=== PATIENT | female | born 1995 | race American Indian/Alaskan Native ===

== ENCOUNTER 2017-10-05 18:01 | Emergency (ER) | payer MEDICAID ==
[2017-10-05 18:18] VITALS: BMI 22.6
[2017-10-05] MEDS ORDERED: Sodium Chloride 0.9% 1,000 ML IV STA (18:54)
[2017-10-05 19:37] LABS: BASO # 0.02 K/mm3 (0.0-2.0); BASO % 0.1 % (0.0-3.0); EOS % 0.2 % (1.5-5.0); GRAN # 13.43 (1.4-6.5); GRAN % 84.1 % (50.0-68.0); HEMOGLOBIN 9.8 g/dL (12.0-16.0); LYMPH % 6.1 % (22.0-35.0); MEAN CELL VOLUME 80.6 fl (80.0-105.0); MEAN CORPUSCULAR HEMOGLOBIN 26.3 pg (25.0-35.0); MEAN CORPUSCULAR HGB CONC 32.7 g/dl (31.0-37.0); MEAN PLATELET VOLUME 9.2 fl (7.0-11.0); MONO # 1.5 (0.1-0.6); MONO % 9.5 % (1.0-6.0); RBC 3.72 10^6/uL (3.5-6.1); RED CELL DISTRIBUTION WIDTH 14.2 % (11.5-14.5)
[2017-10-05 19:38] LABS: ALB/GLOB RATIO 0.7 (1.1-1.8); ALBUMIN 3.2 g/dL (3.0-4.8); ALT/SGPT 11 U/L (7-56); AST/SGOT 23 U/L (14-36); BLOOD UREA NITROGEN 6 mg/dL (7-21); CALCIUM 8.4 mg/dL (8.4-10.5); GFR NON-AFRICAN AMERICAN > 60
[2017-10-05 19:38] LABS: URINE BILIRUBIN NEGATIVE (NEGATIVE); URINE BLOOD NEGATIVE (NEGATIVE); URINE GLUCOSE (UA) NEGATIVE (NEGATIVE); URINE LEUKOCYTE ESTERASE TRACE Leu/uL (NEGATIVE); URINE PROTEIN TRACE mg/dL (<30 mg/dL); URINE UROBILINOGEN 0.2 E.U./dL (<1 E.U./dL)
[2017-10-05 19:42] LABS: INR 1.36; PARTIAL THROMBOPLASTIN TIME 26.7 Seconds (25.1-36.5); PROTHROMBIN TIME 15.6 SECONDS (9.4-12.5)
[2017-10-05 19:54] LABS: VENOUS BLOOD GAS BASE EXCESS 4.7 mmol/L (0.0-2.0); VENOUS BLOOD GAS PO2 84 mm/Hg (30-55); VENOUS BLOOD PH 7.45 (7.32-7.43)
[2017-10-05 19:54] LABS: URINE APPEARANCE CLEAR (CLEAR); URINE COLOR YELLOW (YELLOW)
[2017-10-05 19:59] LABS: URINE BACTERIA MANY (NEG); URINE RBC 0 - 2 /hpf (0-2)
--- NOTE | 2017-10-05 20:50 | ED PDOC ---
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 Patient states that she is currently on antibiotic for C.diff. States she has been on antibiotic for 3weeks now. Her last diarrhea was today. States she had abdominal pain yesterday, but not today. she is currently on Humira for Crhon's. Denies abdominal pain, urinary symptoms, headache, chest pain, cough, back pain, any other complaint. Past Medical History - Provider Review Nursing Documentation Reviewed: Yes - Infectious Disease Hx of Infectious Diseases: C.diff - Hematological/Oncological Hx Anemia: Yes - Musculoskeletal/Rheumatological Hx Arthritis: Yes - Gastrointestinal Hx Crohn's Disease: Yes - Psychiatric Hx Substance Use: No - Surgical History Other/Comment: Colonoscopy Family/Social History - Physician Review Nursing Documentation Reviewed: Yes Family/Social History: Unknown Family HX Smoking Status: Never Smoked Hx Alcohol Use: Yes Frequency of alcohol use: Socially Hx Substance Use: No Allergies/Home Meds Allergies/Adverse Reactions: Allergies No Known Allergies Allergy (Verified 10/05/17 18:17) Home Medications: Home Meds Medication Instructions Recorded Confirmed Adalimumab [Humira Pen] 1 kit SC Q7D 10/05/17 10/05/17 Naproxen [Naprosyn] 1,000 mg PO DAILY PRN 10/05/17 10/05/17 Vancomycin HCl [Vancocin 125 MG 1 cap PO QID 10/05/17 10/05/17 Cap] Review of Systems - Physician Review All systems were reviewed & negative as marked: Yes - Review of Systems Constitutional: Fevers Eyes: Normal ENT: Normal Respiratory: Normal Cardiovascular: Normal Gastrointestinal: Normal Genitourinary Female: Normal Musculoskeletal: Normal Skin: Normal Neurological: Normal Endocrine: Normal Hemo/Lymphatic: Normal Psychiatric: Normal Physical Exam Vital Signs Reviewed: Yes Vital Signs Temp Pulse Resp BP Pulse Ox 10/05/17 22:36 99.2 F 101 H 17 101/61 99 10/05/17 22:01 103 H 18 105/60 97 10/05/17 21:01 99.5 F 10/05/17 19:50 101.5 F H 10/05/17 18:22 101.5 F H 120 H 18 106/67 96 Temperature: Febrile Blood Pressure: Normal Pulse: Tachycardic Respiratory Rate: Normal Appearance: Positive for: Well-Appearing, Non-Toxic, Comfortable Pain Distress: None Mental Status: Positive for: Alert and Oriented X 3 - Systems Exam Head: Present: Atraumatic, Normocephalic Pupils: Present: PERRL Extroacular Muscles: Present: EOMI Conjunctiva: Present: Normal Mouth: Present: Moist Mucous Membranes Neck: Present: Normal Range of Motion Respiratory/Chest: Present: Clear to Auscultation, Good Air Exchange. No: Respiratory Distress, Accessory Muscle Use Cardiovascular: Present: Regular Rate and Rhythm, Normal S1, S2. No: Murmurs Abdomen: Present: Normal Bowel Sounds. No: Tenderness, Distention, Peritoneal Signs, Rebound, Guarding, McBurney's Point Tender, Rovsing's Sign Present Back: Present: Normal Inspection Upper Extremity: Present: Normal Inspection. No: Cyanosis, Edema Lower Extremity: Present: Normal Inspection. No: Edema Neurological: Present: GCS=15, CN II-XII Intact, Speech Normal Skin: Present: Warm, Dry, Normal Color. No: Rashes Psychiatric: Present: Alert, Oriented x 3, Normal Insight, Normal Concentration Medical Decision Making ED Course and Treatment: 10/05/17 22:54 22yo female presnt with one hour of fever and chills. Labs CXR Blood culture VBG Urine culture Tylenol 650 1L NS Stool C-Diff Result was reviewed and leukocytosis was noted.she was hydrated in ED. Potassium was repleted. PT is already on abx. She will need further evaluation for fever source CXR NAD Case was DW Dr. Desai and he accepted pt for admission. He saw pt in ED by the bedside. - Lab Interpretations Lab Results: 10/05/17 19:18 10/05/17 19:18 Lab Results 10/05/17 19:37: pO2 84 H, VBG pH 7.45 H, VBG pCO2 42.0, VBG HCO3 29.2 H, VBG Total CO2 30.5 H, VBG O2 Sat (Calc) 97.4 H, VBG Base Excess 4.7 H, VBG Potassium 3.2 L, Glucose 101, Lactate 0.8, FiO2 21.0, Sodium 138.0, Chloride 105.0, Venous Blood Potassium 3.2 L 10/05/17 19:22: Urine Color Yellow, Urine Appearance Clear, Urine pH 6.0, Ur Specific [place] 1.015, Urine Protein Trace H, Urine Glucose (UA) Negative, Urine Ketones Negative, Urine Blood Negative, Urine Nitrate Negative, Urine Bilirubin Negative, Urine Urobilinogen 0.2, Ur Leukocyte Esterase Trace H, Urine RBC 0 - 2, Urine WBC 5 - 10, Ur Epithelial Cells 6 - 8, Urine Bacteria Many, Urine Other Uyeast 10/05/17 19:18: Sodium 140, Potassium 3.3 L, Chloride 102, Carbon Dioxide 27, Anion Gap 14, BUN 6 L, Creatinine 0.7, Est GFR ( Amer) > 60, Est GFR (Non -Af Amer) > 60, Random Glucose 94, Calcium 8.4, Phosphorus 2.8, Magnesium 1.9, Total Bilirubin 0.3, AST 23, ALT 11, Alkaline Phosphatase 77, Total Protein 8.1 , Albumin 3.2, Globulin 4.8, Albumin/Globulin Ratio 0.7 L 10/05/17 19:18: PT 15.6 H, INR 1.36, APTT 26.7 10/05/17 19:18: WBC 16.0 H, RBC 3.72, Hgb 9.8 L, Hct 30.0 L, MCV 80.6, MCH 26.3 , MCHC 32.7, RDW 14.2, Plt Count 420, MPV 9.2, Gran % 84.1 H, Lymph % (Auto) 6.1 L, [place] % (Auto) 9.5 H, Eos % (Auto) 0.2 L, Baso % (Auto) 0.1, Gran # 13.43 H, Lymph # (Auto) 1.0 L, [place] # (Auto) 1.5 H, Eos # (Auto) 0.0, Baso # (Auto) 0.02 - RAD Interpretation Radiology Orders: 10/05/17 18:51 CHEST PORTABLE [RAD] Stat - Medication Orders Current Medication Orders: Discontinued Medications Acetaminophen (Tylenol 325mg Tab) 650 mg PO STAT STA Stop: 10/05/17 18:56 Last Admin: 10/05/17 19:50 Dose: 650 mg MAR Pain/Vitals Document 10/05/17 19:50 IT (Rec: 10/05/17 19:51 IT [id number]) Pain Reassessment Is This A Pain ReAssessment? No Sleep Is patient sleeping during reassessment? No Vitals Temperature (97.6 F-99.6 F) 101.5 F Temperature Source Oral Acetaminophen (Tylenol 325mg Tab) 650 mg PO Q6H PRN PRN Reason: Fever >100.4 F Acetaminophen (Tylenol 325mg Tab) 650 mg PO Q6H PRN PRN Reason: Pain, moderate (4-7) Sodium Chloride (Sodium Chloride 0.9%) 1,000 mls @ 999 mls/hr IV .Q1H1M STA Stop: 10/05/17 19:54 Last Admin: 10/05/17 19:50 Dose: 999 mls/hr eMAR Start Stop Document 10/05/17 19:50 IT (Rec: 10/05/17 19:50 IT [id number]) Intravenous Solution Start Date 10/05/17 Start Time 19:50 Sodium Chloride (Sodium Chloride 0.9%) 1,000 mls @ 125 mls/hr IV .Q8H JUAN DAVID Potassium Chloride (K-Dur 20 Meq Er Tab) 40 meq PO STAT STA Stop: 10/05/17 21:57 Vancomycin HCl (Vancocin 25 Mg/Ml (Oral Use)) 125 mg PO QID JUAN DAVID PRN Reason: Protocol Disposition/Present on Arrival - Present on Arrival Any Indicators Present on Arrival: No History of DVT/PE: No History of Uncontrolled Diabetes: No Urinary Catheter: No History of Decub. Ulcer: No History Surgical Site Infection Following: None - Disposition Have Diagnosis and Disposition been Completed?: Yes Diagnosis: Leukocytosis, Fever, C. difficile diarrhea Disposition: HOSPITALIZED Disposition Time: 21:25 Patient Plan: Admission Condition: FAIR
[2017-10-05] MEDS ORDERED: Potassium Chloride 20 mEq ER Tab PO STA (21:56)
[2017-10-05] MEDS ORDERED: Vancomycin 25 MG/ML PO SCH (22:00)
[2017-10-05] MEDS ORDERED: Sodium Chloride 0.9% 1,000 ML IV SCH (22:00)
--- NOTE | 2017-10-05 22:36 | CP.PCM.HP ---
<Loki Liang - Last Filed: 10/05/17 21:55> History of Present Illness - History of Present Illness History of Present Illness: Loki Liang, PGY-1 History and Physical for Hospitalist Service CC: Chills and full-body shaking HPI: Ms. Zavaleta is a 22 year old Female with a PMHx of Crohn's Disease on Adalimumab, Fe deficiency anemia not currently on supplementation and Rheumatoid Arthritis on Naproxen who presents with complaints of subjective fevers, chills and full body shakes. 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 Patient reports that this afternoon, patient experienced chills and shaking. Nothing made these feelings better or worse, although patient did not endorse attempting anything. Patient denies any pain or headaches associated with symptoms. Patient has been on a 3 week course of oral vancomycin after being diagnosed with c. diff. Patient reports that due to multiple antibiotics prescribed for her abdominal pain 2/2 to her Crohn's, patient developed c. diff and was prescribed therapeutic oral vancomycin for which she reports compliance. Patient has not had diarrhea in multiple days, reporting 2 non-bloody bowel movements yesterday and one today. Patient arrived for evaluation, and in ED patient received Tylenol and NS bolus. She reports a resolution of her chills and shakes and states her symptoms are improved. PMHx: Crohn's Disease, Anemia, RA PSHx: colonscopy NKDA Social: Denies tobacco and IVDU, social ETOH occasionally Fam hx: noncontributory Meds: Vanc 125 mg PO QID, Naproxen 1g daily PRN every few days, Adalimumab 1 injection per week PCP: None Present on Admission - Present on Admission Any Indicators Present on Admission: No Review of Systems - Review of Systems Review of Systems: 12 point ROS completed and negative except as described in HPI. Past Patient History - Infectious Disease Hx of Infectious Diseases: C.diff - Past Social History Smoking Status: Never Smoked - HEMATOLOGICAL/ONCOLOGICAL Hx Anemia: Yes - MUSCULOSKELETAL/RHEUMATOLOGICAL Hx Arthritis: Yes - GASTROINTESTINAL Hx Crohn's Disease: Yes - PSYCHIATRIC Hx Substance Use: No - SURGICAL HISTORY Other/Comment: Colonoscopy Meds Allergies/Adverse Reactions: Allergies Allergy/AdvReac Type Severity Reaction Status Date / Time No Known Allergies Allergy Verified 10/05/17 18:17 Physical Exam - Constitutional Appears: Well, Non-toxic, No Acute Distress - Head Exam Head Exam: ATRAUMATIC, NORMAL INSPECTION, NORMOCEPHALIC - Eye Exam Eye Exam: EOMI, Normal appearance Pupil Exam: PERRL - ENT Exam ENT Exam: Mucous Membranes Moist, Normal Exam - Neck Exam Neck exam: Positive for: Normal Inspection - Respiratory Exam Respiratory Exam: Clear to Auscultation Bilateral, NORMAL BREATHING PATTERN. absent: Accessory Muscle Use, Chest Wall Tenderness, Decreased Breath Sounds, Rales - Cardiovascular Exam Cardiovascular Exam: RRR, +S1, +S2 - GI/Abdominal Exam GI & Abdominal Exam: Normal Bowel Sounds, Soft. absent: Diminished Bowel Sounds , Distended, Firm, Guarding, Rebound, Rigid, Tenderness - Extremities Exam Extremities exam: Positive for: full ROM, normal inspection, pedal pulses present. Negative for: calf tenderness, joint swelling, tenderness - Back Exam Back exam: NORMAL INSPECTION. absent: CVA tenderness (L), CVA tenderness (R) - Neurological Exam Neurological exam: Alert, CN II-XII Intact, Normal Gait, Oriented x3 - Psychiatric Exam Psychiatric exam: Normal Affect, Normal Mood - Skin Skin Exam: Dry, Intact, Normal Color, Warm Results - Vital Signs Recent Vital Signs: Last Vital Signs Temp 99.5 F 10/05/17 21:01 Pulse 120 H 10/05/17 18:22 Resp 18 10/05/17 18:22 BP 106/67 10/05/17 18:22 Pulse Ox 96 10/05/17 18:22 - Labs Result Diagrams: 10/05/17 19:18 10/05/17 19:18 Assessment & Plan - Assessment and Plan (Free Text) Assessment: Assessment: Ms. Zavaleta is a 22 year old Female with a PMHx of Crohn's Disease, Rheumatoid Arthritis, and Anemia who presented with subjective fevers, chills and shakes. Further workup is pending. Plan: Before therapy could be initiated for leukocytosis, c. diff coverage, and hypokalemia, which includes Vancomycin PO, IVF, Tylenol for fever and pain, serra culture, and Potassium repletion, patient decided to sign out against medical advice. Patient was recommended to stay to be evaluated and monitored for possible infection. Risks of leaving were discussed at length with the patient, and patient's questions were answered in full and to patient's satisfaction. Patient seen, case reviewed, and plan discussed with Dr. Desai. Loki Liang, PGY-1 <Christy Desai - Last Filed: 10/07/17 02:08> Results - Vital Signs Recent Vital Signs: Last Vital Signs Temp 99.2 F 10/05/17 22:36 Pulse 101 H 10/05/17 22:36 Resp 17 10/05/17 22:36 BP 101/61 10/05/17 22:36 Pulse Ox 99 10/05/17 22:36 - Labs Result Diagrams: 10/05/17 19:18 10/05/17 19:18 Attending/Attestation - Attestation I have personally seen and examined this patient.: Yes I have fully participated in the care of the patient.: Yes I have reviewed all pertinent clinical information: Yes
[2017-10-05 22:37] VITALS: BP 101/61; PULSE 101; RESP 17; TEMP 99.2; O2SAT 99
--- NOTE | 2017-10-06 09:18 | RAD ---
Date of service: 10/05/2017 HISTORY: Sepsis Patient COMPARISON: No prior. FINDINGS: LUNGS: No active pulmonary disease. PLEURA: No significant pleural effusion identified, no pneumothorax apparent. CARDIOVASCULAR: Normal. OSSEOUS STRUCTURES: No significant abnormalities. VISUALIZED UPPER ABDOMEN: Normal. OTHER FINDINGS: None. IMPRESSION: No acute cardiopulmonary disease appreciated.
--- NOTE | 2017-10-06 19:27 | CARD ---
APPROVED REPORT Date of service: 10/05/2017 EKG Measurement Heart [id number] <Conclusion> Sinus tachycardia Possible Left atrial enlargement Left ventricular hypertrophy Abnormal ECG
== END 2017-10-05 22:37 | disposition left against medical advice (07) ==
LOC: ED 18:01 → ERH 21:25 → UNDOADMIN 21:25 → ERH 22:32
DX: A04.72 Enterocolitis due to Clostridium difficile, not specified as recurrent (principal); R50.9 Fever, unspecified; D72.829 Elevated white blood cell count, unspecified
CPT/HCPCS: 71045; 80053; 81001; 82803; 83735; 84100; 85025; 85610; 85730; 87040; 87086; 93005; 99285; J7030

== ENCOUNTER 2018-01-01 14:33 | Emergency (ER) | payer MEDICAID, OTHER ==
[2018-01-01 15:30] VITALS: BMI 21.7
[2018-01-01] MEDS ORDERED: Sodium Chloride 0.9% 1,000 ML IV STA (15:47)
[2018-01-01 16:38] VITALS: O2SAT 99
--- NOTE | 2018-01-01 16:43 | ED PDOC ---
Arrival/HPI - General Chief Complaint: GI Problem Time Seen by Provider: 01/01/18 14:34 Historian: Patient - History of Present Illness Narrative History of Present Illness (Text): 01/01/18 16:00 A 22 year old female, whose past medical history includes Crohn's disease, presents to the emergency department complaining of diffuse abdominal pain for the past couple of days. Patient reports also experiencing mild nausea and had 1 episode of non-bilious/non-bloody vomiting. Patient denies any fever, bloody stool, hematuria, vaginal bleeding, or any other complaints at this time. No PMD Time/Duration: < week (few days) Past Medical History - Provider Review Nursing Documentation Reviewed: Yes - Infectious Disease Hx of Infectious Diseases: C.diff - Cardiac Hx Cardiac Disorders: No - Pulmonary Hx Respiratory Disorders: No - Neurological Hx Neurological Disorder: No - HEENT Hx HEENT Disorder: No - Renal Hx Renal Disorder: No - Endocrine/Metabolic Hx Endocrine Disorders: No - Hematological/Oncological Hx Blood Disorders: Yes Hx Anemia: Yes - Integumentary Hx Dermatological Disorder: No - Musculoskeletal/Rheumatological Hx Musculoskeletal Disorders: Yes Hx Arthritis: Yes Hx Rheumatoid Arthritis: Yes - Gastrointestinal Hx Gastrointestinal Disorders: Yes Hx Crohn's Disease: Yes - Genitourinary/Gynecological Hx Genitourinary Disorders: No - Psychiatric Hx Psychophysiologic Disorder: No Hx Substance Use: No - Surgical History Other/Comment: Colonoscopy Family/Social History - Physician Review Nursing Documentation Reviewed: Yes Family/Social History: No Known Family HX Smoking Status: Never Smoked Hx Alcohol Use: Yes Hx Substance Use: No Allergies/Home Meds Allergies/Adverse Reactions: Allergies No Known Allergies Allergy (Verified 10/05/17 18:17) Home Medications: Home Meds Medication Instructions Recorded Confirmed Adalimumab [Humira Pen] 1 kit SC Q7D 10/05/17 10/05/17 Naproxen [Naprosyn] 1,000 mg PO DAILY PRN 10/05/17 10/05/17 Vancomycin HCl [Vancocin 125 MG 1 cap PO QID 10/05/17 10/05/17 Cap] Review of Systems - Physician Review All systems were reviewed & negative as marked: Yes - Review of Systems Constitutional: absent: Fevers Gastrointestinal: Abdominal Pain (diffuse), Nausea (mild), Vomiting (1 episode). absent: Stool Changes (no bloody stool) Genitourinary Female: absent: Hematuria, Vaginal Bleeding Physical Exam Vital Signs Reviewed: Yes Vital Signs Temp Pulse Resp BP Pulse Ox 01/01/18 16:38 98.5 F 68 19 113/62 99 Temperature: Afebrile Blood Pressure: Normal Pulse: Regular Respiratory Rate: Normal Appearance: Positive for: Well-Appearing, Non-Toxic, Comfortable Pain Distress: None Mental Status: Positive for: Alert and Oriented X 3 - Systems Exam Head: Present: Atraumatic, Normocephalic Pupils: Present: PERRL Extroacular Muscles: Present: EOMI Conjunctiva: Present: Normal Mouth: Present: Moist Mucous Membranes Neck: Present: Normal Range of Motion Respiratory/Chest: Present: Clear to Auscultation, Good Air Exchange. No: Respiratory Distress, Accessory Muscle Use Cardiovascular: Present: Regular Rate and Rhythm, Normal S1, S2. No: Murmurs Abdomen: No: Tenderness, Distention, Peritoneal Signs Back: Present: Normal Inspection Upper Extremity: Present: Normal Inspection. No: Cyanosis, Edema Lower Extremity: Present: Normal Inspection. No: Edema Neurological: Present: GCS=15, CN II-XII Intact, Speech Normal Skin: Present: Warm, Dry, Normal Color. No: Rashes Psychiatric: Present: Alert, Oriented x 3, Normal Insight, Normal Concentration Medical Decision Making ED Course and Treatment: 01/01/18 16:02 Impression: 22 year old female with diffuse abdominal pain, mild nausea, and had 1 episode of vomiting. Physical examination is unremarkable. Plan: -- Abd/Pelvis CT -- Labs -- Urine Culture -- Urinalysis -- Toradol -- IV Fluids -- POC Urine Test -- Reassess and disposition Prior Visits: Notes and results from previous visits were reviewed. Patient was last seen in the emergency department on 10/05/2017 for fever and chills. Patient left against medical advice. Progress Notes: - RAD Interpretation Radiology Orders: 01/01/18 15:52 ABD & PELVIS IV CONTRAST ONLY [CT] Stat - Medication Orders Current Medication Orders: Sodium Chloride (Sodium Chloride 0.9%) 1,000 mls @ 1,000 mls/hr IV .Q1H STA Stop: 01/01/18 16:46 Last Admin: 01/01/18 16:37 Dose: 1,000 mls/hr eMAR Start Stop Document 01/01/18 16:37 [email or web address] (Rec: 01/01/18 16:37 [facility] [id number]) Intravenous Solution Start Date 01/01/18 Start Time 16:37 Discontinued Medications Ketorolac Tromethamine (Toradol) 30 mg IM STAT STA Stop: 01/01/18 15:48 Last Admin: 01/01/18 16:37 Dose: 30 mg MAR Pain Assessment Document 01/01/18 16:37 [facility] (Rec: 01/01/18 16:38 [facility] [id number]) Pain Reassessment Is this a pain reassessment? No Sleep Is patient sleeping during reassessment? No Presence of Pain Presence of Pain Yes Pain Scale Used Protocol: PSCALES Pain Scale Used Numeric Location Pain Location Body Site Abdomen Description Description Constant Intensity of Pain at present 2 Pain Behavior Facial Grimacing Aggravating Factors Changing Position Alleviating Factors/Management Medication Techniques Alleviating Factors Medication IM Administration Charges Document 01/01/18 16:37 [facility] (Rec: 01/01/18 16:38 [facility] [id number]) Charges for Administration # of IM Administrations 1 - Scribe Statement The provider has reviewed the documentation as recorded by the Nuria Hebert Provider Scribe Attestation: All medical record entries made by the Scribe were at my direction and personally dictated by me. I have reviewed the chart and agree that the record accurately reflects my personal performance of the history, physical exam, medical decision making, and the department course for this patient. I have also personally directed, reviewed, and agree with the discharge instructions and disposition. Disposition/Present on Arrival - Present on Arrival Any Indicators Present on Arrival: No History of DVT/PE: No History of Uncontrolled Diabetes: No Urinary Catheter: No History of Decub. Ulcer: No History Surgical Site Infection Following: None - Disposition Have Diagnosis and Disposition been Completed?: Yes Diagnosis: Crohn's disease Disposition: HOME/ ROUTINE Disposition Time: 19:00 Patient Problems: Current Active Problems Problem Status Onset Crohn's disease Acute Condition: GOOD Discharge Instructions (ExitCare): Inflammatory Bowel Disease (DC) Additional Instructions: WILFRID BOWMAN, thank you for letting us take care of you today. Your provider was Mina Del Cid DO and you were treated for ABD PAIN. The emergency medical care you received today was directed at your acute symptoms. If you were prescribed any medication, please fill it and take as directed. It may take several days for your symptoms to resolve. Return to the Emergency Department if your symptoms worsen, do not improve, or if you have any other problems. Please contact your doctor or call one of the physicians/clinics you have been referred to that are listed on the Patient Visit Information form that is included in your discharge packet. Bring any paperwork you were given at discharge with you along with any medications you are taking to your follow up visit. Our treatment cannot replace ongoing medical care by a primary care provider outside of the emergency department. Thank you for allowing the [facility] team to be part of your care today. Follow up with our clinic next week for outpatient care and evaluation. Referrals: Margo Cunningham MD [Medical Doctor] - Follow up with primary Director Of Web Marketing Service [Outside] - Follow up with primary Forms: [employer] (Turkish)
[2018-01-01 16:45] LABS: BASO # 0.03 K/mm3 (0.0-2.0); BASO % 0.5 % (0.0-3.0); EOS # 0.1 (0.0-0.7); GRAN # 2.88 (1.4-6.5); GRAN % 49.2 % (50.0-68.0); HEMOGLOBIN 10.6 g/dL (12.0-16.0); LYMPH # 2.3 (1.2-3.4); LYMPH % 39.4 % (22.0-35.0); MEAN CELL VOLUME 82.9 fl (80.0-105.0); MEAN CORPUSCULAR HEMOGLOBIN 26.6 pg (25.0-35.0); MEAN CORPUSCULAR HGB CONC 32.1 g/dl (31.0-37.0); MEAN PLATELET VOLUME 10.2 fl (7.0-11.0); MONO # 0.5 (0.1-0.6); MONO % 8.9 % (1.0-6.0); RBC 3.98 10^6/uL (3.5-6.1); WHITE BLOOD COUNT 5.9 10^3/uL (4.5-11.0)
[2018-01-01 16:51] LABS: PH,URINE 7.5 (4.7-8.0); URINE BILIRUBIN NEGATIVE (NEGATIVE); URINE BLOOD NEGATIVE (NEGATIVE); URINE GLUCOSE (UA) NEGATIVE (NEGATIVE); URINE LEUKOCYTE ESTERASE NEGATIVE Leu/uL (NEGATIVE); URINE PROTEIN NEGATIVE mg/dL (<30 mg/dL); URINE UROBILINOGEN 0.2 E.U./dL (<1 E.U./dL)
[2018-01-01 16:54] LABS: URINE APPEARANCE CLEAR (CLEAR); URINE COLOR YELLOW (YELLOW)
[2018-01-01 17:19] LABS: ALB/GLOB RATIO 0.8 (1.1-1.8); ALBUMIN 3.9 g/dL (3.0-4.8); ALT/SGPT 14 U/L (7-56); AST/SGOT 26 U/L (14-36); BLOOD UREA NITROGEN 7 mg/dL (7-21); CALCIUM 8.8 mg/dL (8.4-10.5); GFR NON-AFRICAN AMERICAN > 60; LIPASE 45 U/L (23-300)
[2018-01-01] MEDS ORDERED: Iohexol 350 MG/100 ML VIAL ONE (17:33)
[2018-01-01 19:19] VITALS: BP 109/78; PULSE 82; RESP 17; TEMP 98
--- NOTE | 2018-01-02 09:19 | CT ---
Date of service: 01/01/2018 PROCEDURE: CT Abdomen and Pelvis with contrast HISTORY: lower abdominal pain h/o crohn's disease COMPARISON: None. TECHNIQUE: Contrast dose: 100 cc of Omni 350 Radiation dose: Total exam DLP = 231.24 mGy-cm. This CT exam was performed using one or more of the following dose reduction techniques: Automated exposure control, adjustment of the mA and/or kV according to patient size, and/or use of iterative reconstruction technique. FINDINGS: LOWER THORAX: Unremarkable. LIVER: Unremarkable. No gross lesion or ductal dilatation. GALLBLADDER AND BILE DUCTS: Unremarkable. PANCREAS: Unremarkable. No gross lesion or ductal dilatation. SPLEEN: Unremarkable. ADRENALS: Unremarkable. No mass. KIDNEYS AND URETERS: Unremarkable. No hydronephrosis. No solid mass. VASCULATURE: Unremarkable. No aortic aneurysm. No aortic atherosclerotic calcification or mural plaque present. BOWEL: Unremarkable. No obstruction. No gross mural thickening. APPENDIX: Normal appendix. PERITONEUM: Unremarkable. No free fluid. No free air. LYMPH NODES: Mildly enlarged mesenteric lymph nodes in the right lower quadrant measuring up to 12 mm. Findings consistent with mesenteric adenitis BLADDER: Unremarkable. REPRODUCTIVE: IUD in place BONES: No acute fracture. OTHER FINDINGS: The report concurs with the preliminary [facility] report IMPRESSION: Mesenteric adenitis in the right lower quadrant. No evidence of appendicitis
== END 2018-01-01 19:18 | disposition home or self-care (01) ==
LOC: ED 14:33
DX: K50.90 Crohn's disease, unspecified, without complications (principal); M06.9 Rheumatoid arthritis, unspecified
CPT/HCPCS: 74177; 80053; 81003; 83690; 83735; 85025; 87086; 96372; 99283; J1885; J7030; Q9967

== ENCOUNTER 2018-01-15 09:20 | Emergency (ER) | payer MEDICAID ==
[2018-01-15 09:28] VITALS: BMI 21.7
[2018-01-15] MEDS ORDERED: Sodium Chloride 0.9% 1,000 ML IV STA (09:32)
--- NOTE | 2018-01-15 09:34 | ED PDOC ---
Arrival/HPI - General Chief Complaint: Abdominal Pain Time Seen by Provider: 01/15/18 09:22 Historian: Patient - History of Present Illness Time/Duration: Other (Several weeks) Symptom Onset: Gradual Symptom Course: Unchanged Quality: Aching Severity Level: Moderate Activities at Onset: Rest Associated Symptoms (Text): 01/15/18 09:34 Patient complains of a several week history of generalized abdominal pain along with nausea and diarrhea. She began vomiting approximately one week ago. There is a history of Crohn's disease. She last had Humira 3 weeks ago. She takes Naprosyn. She was seen in the emergency department 2 weeks ago for similar complaints. She had an unremarkable workup at that time including a CT scan of the abdomen and pelvis which was positive for right lower quadrant mesenteric adenitis only. She sees a GI physician back home in [place] approximately every 6 months. She has no physician here. She does not appear ill. No genitourinary symptoms. No fever or chills. No low back pain. Past Medical History - Infectious Disease Hx of Infectious Diseases: None - Cardiac Hx Cardiac Disorders: No - Pulmonary Hx Respiratory Disorders: No - Neurological Hx Neurological Disorder: No - HEENT Hx HEENT Disorder: No - Renal Hx Renal Disorder: No - Endocrine/Metabolic Hx Endocrine Disorders: No - Hematological/Oncological Hx Blood Disorders: Yes Hx Anemia: Yes - Integumentary Hx Dermatological Disorder: No - Musculoskeletal/Rheumatological Hx Musculoskeletal Disorders: Yes Hx Arthritis: Yes Hx Rheumatoid Arthritis: Yes - Gastrointestinal Hx Gastrointestinal Disorders: Yes Hx Crohn's Disease: Yes (on humira q2w) - Genitourinary/Gynecological Other/Comment: + IUD - Psychiatric Hx Psychophysiologic Disorder: No Hx Substance Use: No - Surgical History Other/Comment: Colonoscopy Family/Social History - Physician Review Nursing Documentation Reviewed: Yes Family/Social History: Unknown Family HX Smoking Status: Never Smoked Hx Alcohol Use: Yes Frequency of alcohol use: Socially Hx Substance Use: No Allergies/Home Meds Allergies/Adverse Reactions: Allergies No Known Allergies Allergy (Verified 10/05/17 18:17) Home Medications: Home Meds Medication Instructions Recorded Confirmed Adalimumab [Humira Pen] 1 kit SC Q7D 10/05/17 01/15/18 RX: Naproxen [Naprosyn] 1,000 mg PO DAILY PRN 10/05/17 01/15/18 Review of Systems - Physician Review All systems were reviewed & negative as marked: Yes - Review of Systems Constitutional: absent: Fatigue, Fevers Respiratory: absent: SOB, Cough Cardiovascular: absent: Chest Pain, Palpitations, Syncope Gastrointestinal: Abdominal Pain, Diarrhea, Nausea. absent: Constipation, Hematochezia, Hematemesis, Anorexia, Food Intolerance Genitourinary Female: absent: Dysuria, Frequency, Hematuria, Vaginal Bleeding, Vaginal Discharge Neurological: absent: Headache, Dizziness, Focal Weakness Physical Exam Temperature: Afebrile Blood Pressure: Normal Pulse: Regular Respiratory Rate: Normal Appearance: Positive for: Well-Appearing, Non-Toxic, Comfortable Pain Distress: Mild Mental Status: Positive for: Alert and Oriented X 3 - Systems Exam Head: Present: Atraumatic, Normocephalic Pupils: Present: PERRL Extroacular Muscles: Present: EOMI Conjunctiva: Present: Normal Mouth: Present: Moist Mucous Membranes Pharnyx: No: ERYTHEMA, EXUDATE, TONSILS ENLARGED Neck: Present: Normal Range of Motion Respiratory/Chest: Present: Clear to Auscultation, Good Air Exchange. No: Respiratory Distress, Accessory Muscle Use Cardiovascular: Present: Regular Rate and Rhythm, Normal S1, S2. No: Murmurs Abdomen: Present: Tenderness (Mild generalized abdominal tenderness with no guarding and no rebound), Normal Bowel Sounds. No: Distention, Peritoneal Signs, Rebound, Guarding Back: Present: Normal Inspection. No: CVA Tenderness, Midline Tenderness, Paraspinal Tenderness Upper Extremity: Present: Normal Inspection. No: Cyanosis, Edema Lower Extremity: Present: Normal Inspection. No: Edema Neurological: Present: GCS=15, CN II-XII Intact, Speech Normal, Motor Func Grossly Intact Skin: Present: Warm, Dry, Normal Color. No: Rashes Psychiatric: Present: Alert, Oriented x 3, Normal Insight, Normal Concentration Medical Decision Making ED Course and Treatment: 01/15/18 10:27 Symptoms have improved. Urine cultures been obtained. Patient will be discharged home to follow-up with PMD and GI. Follow up in ER as needed. Disposition/Present on Arrival - Present on Arrival Any Indicators Present on Arrival: No History of DVT/PE: No History of Uncontrolled Diabetes: No Urinary Catheter: No History of Decub. Ulcer: No History Surgical Site Infection Following: None - Disposition Have Diagnosis and Disposition been Completed?: Yes Diagnosis: Abdominal pain, Nausea vomiting and diarrhea Disposition: HOME/ ROUTINE Disposition Time: 10:28 Patient Plan: Discharge Patient Problems: Current Active Problems Problem Status Onset Abdominal pain Acute Nausea vomiting and diarrhea Acute Condition: IMPROVED Discharge Instructions (ExitCare): Diarrhea in Adolescents and Adults, Crohn's Disease in Adults, Acute Abdomen (Belly Pain), Nausea and Vomiting, Adult (DC) Additional Instructions: Tylenol as directed on bottle as needed. Follow-up with PMD and light bulb tester. Follow up in ER as needed. Prescriptions: Ondansetron ODT [Zofran ODT] 4 mg PO Q6 #20 odt Referrals: Rosetta Armstrong MD [Staff Provider] - Follow up with primary [employer] [Outside] - Follow up with primary Forms: [employer] (Portuguese)
[2018-01-15 09:38] VITALS: RESP 18; TEMP 98.2
[2018-01-15 10:05] LABS: PH,URINE 6.5 (4.7-8.0); URINE BILIRUBIN NEGATIVE (NEGATIVE); URINE BLOOD TRACE-INTACT (NEGATIVE); URINE GLUCOSE (UA) NEGATIVE (NEGATIVE); URINE LEUKOCYTE ESTERASE TRACE Leu/uL (NEGATIVE); URINE PROTEIN NEGATIVE mg/dL (<30 mg/dL); URINE UROBILINOGEN 0.2 E.U./dL (<1 E.U./dL)
[2018-01-15 10:06] LABS: BASO # 0.03 K/mm3 (0.0-2.0); BASO % 0.7 % (0.0-3.0); EOS # 0.1 (0.0-0.7); EOS % 1.2 % (1.5-5.0); GRAN # 1.7 (1.4-6.5); GRAN % 41.1 % (50.0-68.0); HEMOGLOBIN 10.2 g/dL (12.0-16.0); LYMPH # 1.9 (1.2-3.4); LYMPH % 44.7 % (22.0-35.0); MEAN CELL VOLUME 80.8 fl (80.0-105.0); MEAN CORPUSCULAR HEMOGLOBIN 26.4 pg (25.0-35.0); MEAN CORPUSCULAR HGB CONC 32.7 g/dl (31.0-37.0); MEAN PLATELET VOLUME 10.2 fl (7.0-11.0); MONO # 0.5 (0.1-0.6); MONO % 12.3 % (1.0-6.0); RBC 3.86 10^6/uL (3.5-6.1); RED CELL DISTRIBUTION WIDTH 14.4 % (11.5-14.5); WHITE BLOOD COUNT 4.1 10^3/uL (4.5-11.0)
[2018-01-15 10:07] LABS: URINE APPEARANCE CLEAR (CLEAR); URINE COLOR YELLOW (YELLOW)
[2018-01-15 10:08] LABS: ALB/GLOB RATIO 0.8 (1.1-1.8); ALBUMIN 3.7 g/dL (3.0-4.8); ALT/SGPT 13 U/L (7-56); AST/SGOT 21 U/L (14-36); BLOOD UREA NITROGEN 7 mg/dL (7-21); CALCIUM 8.9 mg/dL (8.4-10.5); GFR NON-AFRICAN AMERICAN > 60; LIPASE 42 U/L (23-300)
[2018-01-15 10:12] LABS: URINE BACTERIA TRACE (NEG)
[2018-01-15 10:35] VITALS: BP 116/70; PULSE 71; O2SAT 98
== END 2018-01-15 10:47 | disposition home or self-care (01) ==
LOC: ED 09:20
DX: R10.84 Generalized abdominal pain (principal); R11.2 Nausea with vomiting, unspecified; R19.7 Diarrhea, unspecified; M06.9 Rheumatoid arthritis, unspecified
CPT/HCPCS: 80053; 81001; 83690; 83735; 85025; 87086; 96361; 96374; 96375; 99285; C9113; J1885; J2405; J7030

== ENCOUNTER 2018-01-31 10:19 | Emergency (ER) | payer MEDICAID ==
[2018-01-31 10:22] VITALS: RESP 18; BMI 20.9
[2018-01-31] MEDS ORDERED: Sodium Chloride 0.9% 1,000 ML IV STA (11:00)
--- NOTE | 2018-01-31 11:04 | ED PDOC ---
Arrival/HPI - General Chief Complaint: GI Problem Time Seen by Provider: 01/31/18 10:55 Historian: Patient, Other (boyfriend) - History of Present Illness Time/Duration: Other (several days) Symptom Onset: Gradual Symptom Course: Unchanged Quality: Aching Severity Level: Mild Activities at Onset: Rest Associated Symptoms (Text): 01/31/18 11:01 patient has a history of Crohn's disease. She complains of generalized abdominal pain along with nausea and bloody diarrhea for the last several weeks to several months. She is unable to find a physician in this area who accepts her insurance. She did communicate with the [facility] who was unable to help her. She last had her Humira approximately 2-3 weeks ago. Her mother mails it to her from [place]. She is going home in 2 days and has an appointment with her GI there. She developed a 101 fever last night and became concerned. There is no vomiting. She has maintained a good appetite. She does not appear ill. She appears comfortable. Past Medical History - Provider Review Nursing Documentation Reviewed: Yes - Infectious Disease Hx of Infectious Diseases: None - Reproductive Menopause: No - Cardiac Hx Cardiac Disorders: No - Pulmonary Hx Respiratory Disorders: No - Neurological Hx Neurological Disorder: No - HEENT Hx HEENT Disorder: No - Renal Hx Renal Disorder: No - Endocrine/Metabolic Hx Endocrine Disorders: No - Hematological/Oncological Hx Blood Disorders: Yes Hx Anemia: Yes - Integumentary Hx Dermatological Disorder: No - Musculoskeletal/Rheumatological Hx Musculoskeletal Disorders: Yes Hx Arthritis: Yes Hx Rheumatoid Arthritis: Yes - Gastrointestinal Hx Gastrointestinal Disorders: Yes Hx Crohn's Disease: Yes (on humira q2w) - Genitourinary/Gynecological Other/Comment: + IUD - Psychiatric Hx Psychophysiologic Disorder: No Hx Substance Use: No - Surgical History Other/Comment: Colonoscopy Family/Social History - Physician Review Nursing Documentation Reviewed: Yes Family/Social History: Unknown Family HX Smoking Status: Never Smoked Hx Alcohol Use: Yes Hx Substance Use: No Allergies/Home Meds Allergies/Adverse Reactions: Allergies No Known Allergies Allergy (Verified 01/31/18 10:52) Home Medications: Home Meds Medication Instructions Recorded Confirmed Adalimumab [Humira Pen] 1 kit SC Q7D 10/05/17 01/31/18 Review of Systems - Physician Review All systems were reviewed & negative as marked: Yes - Review of Systems Constitutional: Fevers. absent: Fatigue Respiratory: Normal Cardiovascular: Normal Gastrointestinal: Abdominal Pain, Diarrhea, Nausea, Hematochezia. absent: Constipation, Vomiting, Hematemesis Genitourinary Female: absent: Dysuria, Frequency, Hematuria, Urine Output Changes Neurological: absent: Headache, Dizziness, Focal Weakness Physical Exam Vital Signs Reviewed: Yes Vital Signs Temp Pulse Resp BP Pulse Ox 01/31/18 10:21 97.9 F 101 H 18 127/83 100 Temperature: Afebrile Blood Pressure: Normal Pulse: Regular Respiratory Rate: Normal Appearance: Positive for: Well-Appearing, Non-Toxic, Comfortable Pain Distress: None Mental Status: Positive for: Alert and Oriented X 3 - Systems Exam Head: Present: Atraumatic, Normocephalic Pupils: Present: PERRL Extroacular Muscles: Present: EOMI Conjunctiva: Present: Normal Mouth: Present: Moist Mucous Membranes Pharnyx: No: ERYTHEMA, EXUDATE, TONSILS ENLARGED Neck: Present: Normal Range of Motion Respiratory/Chest: Present: Clear to Auscultation, Good Air Exchange. No: Respiratory Distress, Accessory Muscle Use Cardiovascular: Present: Regular Rate and Rhythm, Normal S1, S2. No: Murmurs Abdomen: No: Tenderness, Distention, Peritoneal Signs, Rebound, Guarding Back: Present: Normal Inspection Upper Extremity: Present: Normal Inspection. No: Cyanosis, Edema Lower Extremity: Present: Normal Inspection. No: Edema Neurological: Present: GCS=15, CN II-XII Intact, Speech Normal, Motor Func Grossly Intact Skin: Present: Warm, Dry, Normal Color. No: Rashes Psychiatric: Present: Alert, Oriented x 3, Normal Insight, Normal Concentration Medical Decision Making ED Course and Treatment: 01/31/18 11:14 Impression: 22 year old female who presents to the emergency department complaining of abdominal pain, bloody diarrhea, and nausea. Plan: -- Labs -- IV Fluids -- Zofran -- CDiff toxin and antigen -- Stool Culture -- POC test -- Reassess and disposition Prior Visits: Notes and results from previous visits were reviewed. Progress Notes: 01/31/18 12:37 symptoms improved. Stool culture obtained. Discharge home accompanied by bennett mendoza. Follow-up with PMD. Follow up in ER as needed. - Scribe Statement The provider has reviewed the documentation as recorded by the Nuria Etienne Provider Jasmineibe Attestation: All medical record entries made by the Jasmineibpaulo were at my direction and personally dictated by me. I have reviewed the chart and agree that the record accurately reflects my personal performance of the history, physical exam, medical decision making, and the department course for this patient. I have also personally directed, reviewed, and agree with the discharge instructions and d isposition. Disposition/Present on Arrival - Present on Arrival Any Indicators Present on Arrival: No History of DVT/PE: No History of Uncontrolled Diabetes: No Urinary Catheter: No History of Decub. Ulcer: No History Surgical Site Infection Following: None - Disposition Have Diagnosis and Disposition been Completed?: Yes Diagnosis: Hypokalemia, Nausea, Diarrhea, Crohns disease, Abdominal pain Disposition: HOME/ ROUTINE Disposition Time: 12:38 Patient Plan: Discharge Condition: IMPROVED Discharge Instructions (ExitCare): Diarrhea in Adolescents and Adults, Hypokalemia, Inflammatory Bowel Disease Additional Instructions: clear liquids. Follow-up with PMD. Follow up in ER as needed. Prescriptions: Ondansetron ODT [Zofran ODT] 4 mg PO Q6 #20 odt Referrals: FAMILY PROVIDER,NO [Primary Care Provider] - Follow up with primary Forms: [employer] (Vietnamese)
[2018-01-31 12:03] LABS: BASO # 0.03 K/mm3 (0.0-2.0); BASO % 0.6 % (0.0-3.0); EOS # 0.1 (0.0-0.7); EOS % 1.5 % (1.5-5.0); GRAN # 2.71 (1.4-6.5); GRAN % 56.9 % (50.0-68.0); HEMOGLOBIN 10.6 g/dL (12.0-16.0); LYMPH # 1.4 (1.2-3.4); MEAN CELL VOLUME 78.8 fl (80.0-105.0); MEAN CORPUSCULAR HEMOGLOBIN 25.5 pg (25.0-35.0); MEAN CORPUSCULAR HGB CONC 32.4 g/dl (31.0-37.0); MEAN PLATELET VOLUME 9.5 fl (7.0-11.0); MONO # 0.6 (0.1-0.6); RBC 4.15 10^6/uL (3.5-6.1); WHITE BLOOD COUNT 4.8 10^3/uL (4.5-11.0)
[2018-01-31 12:13] LABS: INR 1.32; PROTHROMBIN TIME 15.3 SECONDS (9.4-12.5)
[2018-01-31 12:14] LABS: ALB/GLOB RATIO 0.7 (1.1-1.8); ALBUMIN 3.8 g/dL (3.0-4.8); ALT/SGPT 17 U/L (7-56); AST/SGOT 23 U/L (14-36); BLOOD UREA NITROGEN 6 mg/dL (7-21); CALCIUM 9.1 mg/dL (8.4-10.5); GFR NON-AFRICAN AMERICAN > 60; LIPASE 32 U/L (23-300)
[2018-01-31] MEDS ORDERED: Potassium Chloride 10 mEq ER Tab PO STA (12:22)
[2018-01-31 12:52] VITALS: BP 121/70; PULSE 70; TEMP 97.8; O2SAT 96
== END 2018-01-31 13:35 | disposition home or self-care (01) ==
LOC: ED 10:19
DX: E87.6 Hypokalemia (principal); K50.90 Crohn's disease, unspecified, without complications; R19.7 Diarrhea, unspecified; R11.0 Nausea; R10.84 Generalized abdominal pain; M06.9 Rheumatoid arthritis, unspecified
CPT/HCPCS: 80053; 83690; 83735; 85025; 85610; 85730; 87045; 87324; 96361; 96374; 99284; J2405; J7030

== ENCOUNTER 2018-02-18 23:26 | Emergency (ER) | payer MEDICAID ==
[2018-02-18 23:55] VITALS: BMI 21.7
[2018-02-18 23:56] VITALS: O2SAT 100
[2018-02-19] MEDS ORDERED: Sodium Chloride 0.9% 1,000 ML IV STA
--- NOTE | 2018-02-19 00:04 | ED PDOC ---
Arrival/HPI - General Historian: Patient - History of Present Illness Narrative History of Present Illness (Text): 02/19/18 00:01 22 y/o female, pmh including croh's disease/c.diff, nkda, c/o abdominal pain with diarrhea on and off x 1-2 weeks. Pt. stated that she has abdominal pain and diarrhea on and off x 1-2 weeks, started to have fever yesterday, tmax 102, admits fatigue and tired, multiple watery diarrhea throughout the week, no antipyretic taken for the past 8 hours, diarrhea started when she was at [place] for vacation and return back with persistent diarrhea, no sick contract, no new animals, no other medical or psychological complaints. <Saulo Mae - Last Filed: 02/19/18 02:07> <Cruz Ibarra - Last Filed: 02/19/18 04:02> - General Chief Complaint: Abdominal Pain Time Seen by Provider: 02/18/18 23:31 Past Medical History - Provider Review Nursing Documentation Reviewed: Yes - Infectious Disease Hx of Infectious Diseases: None - Cardiac Hx Cardiac Disorders: No - Pulmonary Hx Respiratory Disorders: No - Neurological Hx Neurological Disorder: No - HEENT Hx HEENT Disorder: No - Renal Hx Renal Disorder: No - Endocrine/Metabolic Hx Endocrine Disorders: No - Hematological/Oncological Hx Blood Disorders: Yes Hx Anemia: Yes - Integumentary Hx Dermatological Disorder: No - Musculoskeletal/Rheumatological Hx Musculoskeletal Disorders: Yes Hx Arthritis: Yes Hx Rheumatoid Arthritis: Yes - Gastrointestinal Hx Gastrointestinal Disorders: Yes Hx Crohn's Disease: Yes (on humira q1) - Genitourinary/Gynecological Other/Comment: + IUD - Psychiatric Hx Psychophysiologic Disorder: No Hx Substance Use: No - Surgical History Other/Comment: Colonoscopy - Anesthesia Hx Anesthesia: Yes <Saulo Mae - Last Filed: 02/19/18 02:07> Family/Social History - Physician Review Nursing Documentation Reviewed: Yes Family/Social History: Unknown Family HX Smoking Status: Never Smoked Hx Alcohol Use: Yes Hx Substance Use: No <Saulo Mae - Last Filed: 02/19/18 02:07> Allergies/Home Meds <Saulo Mae - Last Filed: 02/19/18 02:07> <Cruz Ibarra - Last Filed: 02/19/18 04:02> Allergies/Adverse Reactions: Allergies No Known Allergies Allergy (Verified 02/18/18 23:56) Home Medications: Home Meds Medication Instructions Recorded Confirmed Adalimumab [Humira Pen] 1 kit [place] Q7D 10/05/17 02/18/18 Review of Systems - Review of Systems Constitutional: Fatigue, Fevers Eyes: absent: Vision Changes ENT: absent: Hearing Changes Respiratory: absent: SOB, Cough Cardiovascular: absent: Chest Pain Gastrointestinal: Abdominal Pain, Diarrhea. absent: Nausea, Vomiting Skin: absent: Rash, Pruritis Neurological: absent: Headache, Dizziness Psychiatric: absent: Anxiety, Depression, Suicidal Ideation <Saulo Mae Q - Last Filed: 02/19/18 02:07> Physical Exam Vital Signs Reviewed: Yes Vital Signs Temp Pulse Resp BP Pulse Ox 02/18/18 23:56 100.9 F H 125 H 16 140/80 100 Temperature: Febrile Blood Pressure: Normal Pulse: Tachycardic Respiratory Rate: Normal Appearance: Positive for: Ill-Appearing Pain Distress: Mild Mental Status: Positive for: Alert and Oriented X 3 - Systems Exam Head: Present: Atraumatic, Normocephalic Pupils: Present: PERRL Extroacular Muscles: Present: EOMI Conjunctiva: Present: Normal Mouth: Present: Moist Mucous Membranes Neck: Present: Normal Range of Motion Respiratory/Chest: Present: Clear to Auscultation, Good Air Exchange. No: Respiratory Distress, Accessory Muscle Use Cardiovascular: Present: Regular Rate and Rhythm, Normal S1, S2. No: Murmurs Abdomen: Present: Tenderness (lower abdomen region). No: Distention, Peritoneal Signs, Rebound, Guarding Back: Present: Normal Inspection Upper Extremity: Present: Normal Inspection. No: Cyanosis, Edema Lower Extremity: Present: Normal Inspection. No: Edema Neurological: Present: GCS=15, CN II-XII Intact, Speech Normal Skin: Present: Warm, Dry, Normal Color. No: Rashes Psychiatric: Present: Alert, Oriented x 3, Normal Insight, Normal Concentration <Saulo Mae Q - Last Filed: 02/19/18 02:07> Vital Signs Temp Pulse Resp BP Pulse Ox 02/19/18 02:18 98.8 F 96 H 17 98/56 L 100 02/19/18 00:20 100.9 F H 02/18/18 23:56 100.9 F H 125 H 16 140/80 100 <Bosompem,Cruz - Last Filed: 02/19/18 04:02> Medical Decision Making ED Course and Treatment: 02/19/18 00:05 Differential: Colitis vs. Diverticulitis vs. Sepsis vs. Inflammatory Bowel Disease vs. Dehydration vs. UTI vs. intra-abdominal abscess -labs/stool and c.diff culture -CT abdomen and pelvis -IVF/pepcid/zofran -Observe and reassess 02/19/18 02:07 -Urine hcg is negative -CT abdomen and pelvis: -Labs show hgb 10.3 from 10.6 (chronic anemia, low MCV, likely iron deficiency) -VBG: lactic acid 0.9 -Mg within normal limit -Lipase within normal limit -UA show moderate leuk -Pain decreased and she feels better with IVF/pepcid/tylenol -Case discussed and endorsed to Dr. Ibarra including labs, pending CT abdomen and pelvis result. - RAD Interpretation Radiology Orders: 02/19/18 00:00 ABD & PELVIS IV CONTRAST ONLY [CT] Stat <Saulo Mae - Last Filed: 02/19/18 02:07> - Lab Interpretations Lab Results: 02/19/18 00:00 02/19/18 00:00 Lab Results 02/19/18 01:15: Urine Color Yellow, Urine Appearance Sl cloudy, Urine pH 6.5, Ur Specific [place] <= 1.005, Urine Protein Negative, Urine Glucose (UA) Negative, Urine Ketones Negative, Urine Blood Small H, Urine Nitrate Negative, Urine Bilirubin Negative, Urine Urobilinogen 0.2, Ur Leukocyte Esterase Moderate H, Urine RBC 1 - 3 H, Urine WBC 1 - 3, Ur Epithelial Cells 0 - 2, Urine Bacteria Few 02/19/18 00:00: pO2 55, VBG pH 7.42, VBG pCO2 42.0, VBG HCO3 27.2, VBG Total CO2 28.5 H, VBG O2 Sat (Calc) 89.1 H, VBG Base Excess 2.4 H, VBG Potassium 3.4 L, Sodium 132.0, Chloride 97.0 L, Glucose 100, Lactate 0.9, FiO2 21.0, Venous Blood Potassium 3.4 L 02/19/18 00:00: WBC 7.4 D, RBC 4.24, Hgb 10.3 L, Hct 32.2 L, MCV 75.9 L, MCH 24.3 L, MCHC 32.0, RDW 14.8 H, Plt Count 433, MPV 9.3, Gran % 56.8, Lymph % (Auto) 24.2, [place] % (Auto) 18.3 H, Eos % (Auto) 0.4 L, Baso % (Auto) 0.3, Gran # 4.18, Lymph # (Auto) 1.8, [place] # (Auto) 1.4 H, Eos # (Auto) 0.0, Baso # (Auto) 0.02 02/19/18 00:00: Sodium 133, Chloride 96 L, Potassium 3.7, Carbon Dioxide 28, Anion Gap 13, BUN 4 L, Creatinine 0.7, Est GFR ( Amer) > 60, Est GFR (Non-Af Amer) > 60, Random Glucose 105, Calcium 8.9, Magnesium 2.0, Total Bilirubin 0.7, AST 28, ALT 13, Alkaline Phosphatase 85, Total Protein 9.3 H, Albumin 3.8, Globulin 5.5, Albumin/Globulin Ratio 0.7 L, Lipase 23 - RAD Interpretation Narrative RAD Interpretations (Text): 02/19/18 03:59 CT Abdomen and Pelvis with IV contrast Enterocolitis. Infectious and inflammatory etiologies are considered. Radiology Orders: 02/19/18 00:00 ABD & PELVIS IV CONTRAST ONLY [CT] Stat Security Police Officer: Radiologist - Medication Orders Current Medication Orders: Discontinued Medications Acetaminophen (Tylenol 325mg Tab) 650 mg PO STAT STA Stop: 02/19/18 00:02 Last Admin: 02/19/18 00:20 Dose: 650 mg MAR Pain/Vitals Document 02/19/18 00:20 (Rec: 02/19/18 00:21 [id number] Pain Reassessment Is This A Pain ReAssessment? No Vitals Temperature (97.6 F-99.6 F) 100.9 F Famotidine (Pepcid) 20 mg IVP STAT STA Stop: 02/19/18 00:01 Last Admin: 02/19/18 00:20 Dose: 20 mg IVP Administration Document 02/19/18 00:20 (Rec: 02/19/18 00:20 [id number] Charges for Administration # of IVP Administrations 1 Sodium Chloride (Sodium Chloride 0.9%) 1,000 mls @ 999 mls/hr IV .Q1H1M STA Stop: 02/19/18 01:00 Last Admin: 02/19/18 00:21 Dose: 999 mls/hr eMAR Start Stop Document 02/19/18 00:21 (Rec: 02/19/18 00:21 [id number]) Intravenous Solution Start Date 02/19/18 Start Time 00:21 End Date 02/19/18 End time 01:30 Total Infusion Time 69 <Cruz Ibarra - Last Filed: 02/19/18 04:02> - PA / [employer]GE[employer] / Resident Statement / has reviewed & agrees with the documentation as recorded. <Saulo Mae - Last Filed: 02/19/18 02:07> Disposition/Present on Arrival - Present on Arrival Any Indicators Present on Arrival: No History of DVT/PE: No History of Uncontrolled Diabetes: No Urinary Catheter: No History of Decub. Ulcer: No History Surgical Site Infection Following: None - Disposition Have Diagnosis and Disposition been Completed?: Yes Disposition Time: 02:00 <Saulo Mae - Last Filed: 02/19/18 02:07> - Present on Arrival Any Indicators Present on Arrival: No History of DVT/PE: No History of Uncontrolled Diabetes: No Urinary Catheter: No History of Decub. Ulcer: No - Disposition Have Diagnosis and Disposition been Completed?: Yes Patient Plan: Discharge <Cruz Ibarra - Last Filed: 02/19/18 04:02> - Disposition Diagnosis: Enterocolitis Disposition: HOME/ ROUTINE Condition: IMPROVED Discharge Instructions (ExitCare): Colitis (DC) Print Language: MALAY Prescriptions: metroNIDAZOLE [Flagyl] 500 mg PO BID 10 Days #20 tab Referrals: Jw Castro MD [Medical Doctor] - Follow up with primary Forms: [employer] (Latvian), SCHOOL NOTE
[2018-02-19 00:27] LABS: VENOUS BLOOD GAS BASE EXCESS 2.4 mmol/L (0.0-2.0); VENOUS BLOOD GAS PO2 55 mm/Hg (30-55); VENOUS BLOOD PH 7.42 (7.32-7.43)
[2018-02-19 00:37] LABS: BASO # 0.02 K/mm3 (0.0-2.0); BASO % 0.3 % (0.0-3.0); EOS % 0.4 % (1.5-5.0); GRAN # 4.18 (1.4-6.5); GRAN % 56.8 % (50.0-68.0); HEMOGLOBIN 10.3 g/dL (12.0-16.0); LYMPH # 1.8 (1.2-3.4); LYMPH % 24.2 % (22.0-35.0); MEAN CELL VOLUME 75.9 fl (80.0-105.0); MEAN CORPUSCULAR HEMOGLOBIN 24.3 pg (25.0-35.0); MEAN PLATELET VOLUME 9.3 fl (7.0-11.0); MONO # 1.4 (0.1-0.6); MONO % 18.3 % (1.0-6.0); RBC 4.24 10^6/uL (3.5-6.1); RED CELL DISTRIBUTION WIDTH 14.8 % (11.5-14.5); WHITE BLOOD COUNT 7.4 10^3/uL (4.5-11.0)
[2018-02-19 00:45] LABS: ALB/GLOB RATIO 0.7 (1.1-1.8); ALBUMIN 3.8 g/dL (3.0-4.8); ALT/SGPT 13 U/L (7-56); AST/SGOT 28 U/L (14-36); BLOOD UREA NITROGEN 4 mg/dL (7-21); CALCIUM 8.9 mg/dL (8.4-10.5); GFR NON-AFRICAN AMERICAN > 60; LIPASE 23 U/L (23-300)
[2018-02-19] MEDS ORDERED: Iohexol 350 MG/100 ML VIAL ONE (01:28)
[2018-02-19 01:32] LABS: PH,URINE 6.5 (4.7-8.0); URINE BILIRUBIN NEGATIVE (NEGATIVE); URINE BLOOD SMALL (NEGATIVE); URINE GLUCOSE (UA) NEGATIVE (NEGATIVE); URINE LEUKOCYTE ESTERASE MODERATE Leu/uL (NEGATIVE); URINE PROTEIN NEGATIVE mg/dL (<30 mg/dL); URINE UROBILINOGEN 0.2 E.U./dL (<1 E.U./dL)
[2018-02-19 01:46] LABS: URINE APPEARANCE SL CLOUDY (CLEAR); URINE COLOR YELLOW (YELLOW)
[2018-02-19 02:03] LABS: URINE BACTERIA FEW /hpf; URINE EPITHELIAL CELLS 0 - 2 /hpf (0-5)
[2018-02-19 04:12] VITALS: BP 100/65; PULSE 92; RESP 16; TEMP 98.6
--- NOTE | 2018-02-19 08:56 | CT ---
Date of service: 02/19/2018 PROCEDURE: CT Abdomen and Pelvis with contrast HISTORY: abdominal pain/fever/diarrhea COMPARISON: CT abdomen and pelvis with contrast performed 01/01/18 TECHNIQUE: Contrast dose: 100 mL Omnipaque 350 Radiation dose: Total exam DLP = 228.7 mGy-cm. This CT exam was performed using one or more of the following dose reduction techniques: Automated exposure control, adjustment of the mA and/or kV according to patient size, and/or use of iterative reconstruction technique. FINDINGS: LOWER THORAX: No visible consolidation, pleural effusion, or pneumothorax. LIVER: Hypoattenuation on either side of the falciform ligament may reflect focal fatty infiltration. GALLBLADDER AND BILE DUCTS: Unremarkable. PANCREAS: Unremarkable. SPLEEN: Unremarkable. ADRENALS: Unremarkable. KIDNEYS AND URETERS: The kidneys enhance symmetrically. No hydronephrosis or obstructing calculus identified. VASCULATURE: No aortic aneurysm. No atherosclerotic calcification or mural plaque present. Mild narrowing of the celiac artery origin with poststenotic dilatation; correlate clinically for possibility of median arcuate ligament syndrome. BOWEL: Stomach is nondistended. Lack of oral contrast limits evaluation for bowel pathology. Bowel loops appear within normal limits of caliber without evidence of obstruction. Extensive colonic wall thickening most severely involving the right and transverse colon. APPENDIX: The appendix appears within normal limits of caliber. No secondary signs of acute appendicitis. PERITONEUM: No significant free fluid. No definite free air. LYMPH NODES: Prominent mildly enlarged mesenteric lymph nodes. BLADDER: Unremarkable. REPRODUCTIVE: The uterus is present. IUD. BONES: No acute osseous abnormality is detected. OTHER FINDINGS: None. IMPRESSION: Extensive colonic wall thickening most severely involving the right and transverse colon. Appearance consistent with colitis (i.e. Infectious, inflammatory, ischemic). Mildly enlarged mesenteric lymph nodes. Mild narrowing of the celiac artery origin with poststenotic dilatation; correlate clinically for possibility of median arcuate ligament syndrome. IUD. Preliminary impression was provided by [employer]
== END 2018-02-19 04:23 | disposition home or self-care (01) ==
LOC: ED 23:26
DX: K52.9 Noninfective gastroenteritis and colitis, unspecified (principal); D64.9 Anemia, unspecified; K50.90 Crohn's disease, unspecified, without complications
CPT/HCPCS: 74177; 80053; 81001; 82803; 83690; 83735; 85025; 87086; 87181; 96361; 96374; 99283; J7030; Q9967